=== PATIENT | female | born 1960 | race African-American/Black ===

== ENCOUNTER → 2016-11-25 | Outpatient (CLI) | payer OTHER ==
[~2016-11-25] MED LIST: ASPIRIN81 MG PO; ATARAX PO; CENTRUM SILVER1 EAC3 PO; DOK100 MG PO; FLEXERIL10 MG PO; GABAPENTIN300 M2 PO; LOPRESSOR PO; MIRALAX119 GM; OMEPRAZOLE20 M1 PO; OMEPRAZOLE20 M2 PO; PAROXETINE HCL20 M1 PO; PAXIL PO; QUETIAPINE FUM100 MG PO; SEROQUEL PO; TRAMADOL HCL50 M1 PO; TRAMADOL HCL50 M2 PO; VALACYCLOVIR1000 MG PO; ZANTAC PO; ZANTAC150 M1 PO; ZOVIRAX400 MG PO; [UNRECOGNIZED DRUG - OTHER]
== END | disposition home or self-care (01) ==
LOC: CECH 09:04
DX: R06.00 Dyspnea, unspecified (principal); K21.9 Gastro-esophageal reflux disease without esophagitis; F41.9 Anxiety disorder, unspecified; F32.9 Major depressive disorder, single episode, unspecified; I08.1 Rheumatic disorders of both mitral and tricuspid valves
CPT/HCPCS: 93306

== ENCOUNTER 2016-12-02 10:25 | Observation (INO) | payer OTHER ==
--- NOTE | ~2016-12-02 | DS ---
Unit #: [id number] #: [id number] Patient: TANYA CHRIS [id number] [address] [address] [id number] I MR#: [id number] NAME: TANYA CHRIS ROOM: 55 Age: 56 Sex: F Admission Date: 12/02/2016 : 1960 Discharge Date: 12/03/2016 Attending Physician: Zurdo Lowe M.D. Primary Care Physician: Markus Newman Aprn DISCHARGE SUMMARY DISCHARGE DIAGNOSES 1. Atypical chest pain. 2. Hypertension. 3. Obesity. 4. Gastroesophageal reflux disease. 5. Anxiety/depression. 6. Possible obstructive sleep apnea. 7. Reformed tobaccoism. PROCEDURES PERFORMED The patient underwent an exercise Cardiolite stress test which was normal per Dr. Lowe. Full report is pending. DIAGNOSTIC DATA LABORATORY: Most recent, TSH 1.81, cholesterol 192, triglycerides 144, LDL 98, HDL 65. White blood cell count 4.1, hemoglobin 10.5, hematocrit 33.7, platelets 220, sodium 141, potassium 4.4, chloride 106, CO2 28, BUN 14, creatinine 0.9. Troponin is less than 0.05. CARDIOVASCULAR: EKG unremarkable. HOSPITAL COURSE The patient is a 56-year-old female who does not have a prototyper. She denies ever having a myocardial infarction, stress test or cardiac catheterization. Her past medical history includes anxiety, gastroesophageal reflux disease, hypertension and anemia. The patient reports that she woke up with midsternal chest pain that lasted approximately 5 minutes and that she also had a similar episode the day prior. The patient presented to the emergency department and in the emergency department troponin was negative. EKG was abnormal. She was admitted for observation. The patient did undergo an exercise Cardiolite stress test which was normal per Dr. Lowe. Back on 11/25/2016 she did have a 2-D echocardiogram that showed an ejection fraction of 55%, mild MR, mild TR and RSVP 33 mmHg. I have discussed this case with Dr. Lowe and he is agreeable the patient is stable to discharge. DISCHARGE INSTRUCTIONS 1. The patient will be discharged home. 2. The patient is to follow up with primary care physician in one week. Unit #: [id number] #: [id number] Patient: TANYA CHRIS 3. Healthy heart diet. 4. Activity as tolerated. 5. The patient is to seek medical attention or return to the emergency room if signs or symptoms worsen. DISCHARGE MEDICATIONS 1. Paxil 40 mg p.o. daily. 2. Seroquel 100 mg p.o. daily. 3. Zovirax 400 mg p.o. b.i.d. 4. Lopressor 12.5 mg p.o. daily. 5. Aspirin 81 mg p.o. daily. 6. Tramadol 50 mg p.o. at night. 7. Omeprazole 20 mg p.o. daily. 8. Flexeril 10 mg p.o. b.i.d. p.r.n. pain. 1. Dictated by... Juanita Rosas A.P.R.N. for Melquiades Holland TD: 12/03/2016 13:40 JOB #: [id number] DISCHARGE SUMMARY Page 1 of 1 X Juanita Rosas APRN X DISCHARGE SUMMARY
--- NOTE | ~2016-12-02 | TH ---
Unit #: [id number] #: [id number] Patient: TANYA CHRIS [id number] [address] [address] [id number] I MR#: [id number] NAME: TANYA CHRIS : 1960 SEX: F STUDY DATE/TIME: 12/03/2016 UNIT: [id number] ROOM: 557 STUDY DESCRIPTION: Cardiolite imaging Attending Physician: Zurdo Lowe M.D. Primary Care Physician: Claudette Newman CARDIOLOGY REPORT EXAM Cardiolite imaging. INDICATION Chest pain, hypertension, shortness of breath, fatigue. SUMMARY The patient was given Lexiscan intravenously while at rest and stress, 10.68 and 29.9 mCi, with exercise stress testing done. The patient completed 5 minutes 31 seconds on the [place] protocol. Heart rate increased from 76 to 150 (91%) and blood pressure increased from 123/73 to 168/100. The rest and stress ECG showed no diagnostic ST shifts, no dysrhythmias and no heart block. Perfusion images demonstrate normal perfusion throughout the myocardium. There is intestinal artifact both at rest and stress. Planar images show no significant patient motion. Breast attenuation artifact is present. Normal right ventricular and left ventricular sizes and no increased lung uptake. Summed stress scores is zero, summed difference scores is zero. Gated perfusion wall motion analysis demonstrates end-diastolic volume 74 ml, ejection fraction 63%. IMPRESSION 1. Myocardial perfusion scan shows no ischemia or infarction. 2. Normal wall motion with excellent ejection fraction. 3. Normal stress ECG. 4. Severe deconditioning. 5. Normal heart rate and blood pressure responses. 6. The patient may be discharged. Dictated by... Zurdo Lowe M.D. PJR/gz TD: 12/03/2016 14:06 JOB #: [id number] Unit #: [id number] #: [id number] Patient: TANYA CHRIS CARDIOLOGY REPORT Page 1 of 1 X Zurdo Lowe MD CARDIOLOGY REPORT
--- NOTE | ~2016-12-02 | EKG ---
PATIENT: TANYA CHRIS UNIT #: [id number] Ventricular Rate: 91 BPM Atrial Rate: 91 BPM P-R Interval: 112 ms QRS Duration: 80 ms Q-T Interval: 376 ms QTC Calculation(Bezet): 462 ms Calculated R [place]: 147 degrees Calculated T [place]: -2 degrees Diagnosis Line: Normal sinus rhythm Diagnosis Line: Left posterior fascicular block Diagnosis Line: Non Diagnostic Q in Lead Inferior leads Abnormal Diagnosis Line: ECG Diagnosis Line: Diagnosis Line: Confirmed by SOPHIA ROMERO MD ([id number]) on 12/03/2016 Diagnosis Line: 9:19:01 AM INTERPRETING MD: HEATHER TORIBIO
--- NOTE | ~2016-12-02 | HP ---
Unit #: [id number] #: [id number] Patient: TANYA CHRIS [id number] [address] [address] [id number] I MR#: [id number] NAME: TANYA CHRIS ROOM: 55 Age: 56 Sex: F Admission Date: 12/02/2016 : 1960 Attending Physician: Zurdo Lowe M.D. HISTORY AND PHYSICAL REASON FOR ADMISSION Chest pain. 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 She denies ever having a history of myocardial infarction, stress test, or cardiac catheterization. Patient's past medical history includes anxiety, depression, anemia, and GERD. The patient reports that this morning she woke up with midsternal chest pain that lasted approximately five minutes. There were no associated symptoms at that time. Patient also reports that the day prior she had chest pain that was midsternal that lasted for five minutes with no other associated symptoms. This concerned the patient, and she presented to the emergency department. Patient reports that while she was in the waiting room she had chest pain that lasted for about five to seven minutes. It was midsternal and radiated to both of her arms and up into her jaw. She stated she felt some shortness of breath at that time. Denied any diaphoresis. In the emergency department, patient did receive aspirin chew. Her EKG is unremarkable, and her troponins are less than 0.05 x2. PAST MEDICAL HISTORY 1. Anxiety. 2. Gastroesophageal reflux disease. 3. Depression. 4. Anemia. PAST SURGICAL HISTORY 1. Hysterectomy. 2. . 3. Hemorrhoidectomy x2. ALLERGIES SULFA. HOME MEDICATIONS 1. Flexeril. 2. Quetiapine fumarate. 3. Park-Lax. 4. Acyclovir. 5. DOK. 6. Tramadol. Unit #: [id number] #: [id number] Patient: TANYA CHRIS 7. Paroxetine. 8. Hydroxyzine. 9. Multivitamin. 10. Omeprazole. Please note, the dosages are not known at this time. I have asked the nurses to obtain a complete medication reconciliation list. FAMILY HISTORY Patient reports that her sister has an enlarged heart and hypertension. SOCIAL HISTORY Patient reports that she is , and her last year. She is an ex-smoker and quit smoking last year. She rarely drinks alcohol and denies any illicit drug abuse. REVIEW OF SYSTEMS A 10-point review of systems has been done and is considered otherwise negative unless indicated in the History of Present Illness. PHYSICAL EXAMINATION GENERAL: Patient is awake, alert, and in no acute distress. VITAL SIGNS: Temperature 97.9, heart rate 91, respirations 26, and blood pressure 130/76. HEENT: Head is atraumatic and normocephalic. Pupils are equal, round, and reactive. Extraocular movements are intact. No drainage from ears or nares. NECK: Supple. Trachea is midline. Normal carotid upstrokes. CHEST: Lungs are clear to auscultation bilaterally. No wheezes, rales, or rhonchi. CARDIOVASCULAR: S1 and S2, regular rate and rhythm. No murmurs, rubs, or gallops are appreciated. ABDOMEN: Soft, nontender, and nondistended. Bowel sounds are positive in all four quadrants. SKIN: Appears to be warm, dry, and intact, without any unusual rashes or lesions. EXTREMITIES: No clubbing, edema, or cyanosis. NEUROLOGIC: Cranial nerves II-XII appear to be intact. No focal deficits. She is alert and oriented x3, pleasant and conversant. DIAGNOSTIC STUDIES LABORATORY: White blood cells 4.2, hemoglobin 10.9, hematocrit 35.3, and platelets 235,000. Sodium 137, potassium 3.8, chloride 103, CO2 of 26, BUN 12, creatinine 0.6, and glucose 96. Point of care troponins in the ER are less than 0.05 x2. CARDIOLOGY: EKG shows normal sinus rhythm. ASSESSMENT 1. Chest pain. 2. Hypertension. 3. Obesity. 4. Anxiety and depression. 5. Gastroesophageal reflux disease. 6. Reformed tobaccoism. 7. Possible obstructive sleep apnea. PLAN Unit #: [id number] #: [id number] Patient: TANYA CHRIS At this time, will admit the patient for observation and plan to do an exercise Cardiolite stress test in the morning. Will obtain serial enzymes and check a 2D echocardiogram. Will start the patient on Protonix 40 mg IV daily, nitroglycerin paste one-half inch p.o. q.8 hours, metoprolol 12.5 mg p.o. daily, hold for heart rate less than 60, and aspirin 81 mg p.o. daily. Will also check a BMP, magnesium, CBC, TSH, and lipid panel in the a.m. May need to consider an MART inhibitor or statin after further testing has been done. Dictated by Juanita Rosas A.P.R.N. for Zurdo Lowe M.D. AM/ester TD: 12/02/2016 20:48 JOB #: [id number] HISTORY AND PHYSICAL Page 1 of 1 X Juanita Rosas [employer] DIRECTOR X HISTORY AND PHYSICAL
--- NOTE | ~2016-12-02 | CR72 ---
[facility] A Service of [facility] & [facility] RADIOLOGY TEXT RESULTS PATIENT: TANYA CHRIS LOCATION: [facility] [id number] : [birth year] UNIT #: [id number] AGE: [address]: Zurdo Lowe MD SEX: F ORDER DR: [id number] [facility] [address] [facility] [place], [place] [address] [id number] MR#: [id number] Acc #: [id number] NAME: TANYA CHRIS : 1960 SEX: F STUDY DATE/TIME: 12/02/2016 10:29 UNIT: [facility] ROOM: STUDY DESCRIPTION: CR Chest Single View Portable Attending Physician: Alfredo Varma M.D. Ordering Physician: Alfredo Varma M.D. Primary Care Physician: Claudette Newman MEDICAL IMAGING REPORT This report is preliminary unless electronic signature is present EXAM Chest x-ray 12/02/2016 INDICATION Chest pain today. FINDINGS AP portable chest is compared with 07/10/2015. Heart is enlarged. Lungs are clear. Vascularity is normal. There is no pneumothorax. IMPRESSION Cardiomegaly. No active disease. Dictated by... Wiliam Stringer Jr., M.D. THIS IS AN ELECTRONICALLY VERIFIED REPORT Wiliam Stringer Jr., M.D. at 12/02/2016 3:46 PM MIRTHA/priyanka TD: 12/02/2016 15:21 JOB #: [id number] MEDICAL IMAGING REPORT Page 1 of 1 COPY
--- NOTE | ~2016-12-02 | EKG ---
PATIENT: TANYA CHRIS UNIT #: [id number] Ventricular Rate: 72 BPM Atrial Rate: 72 BPM P-R Interval: 134 ms QRS Duration: 76 ms Q-T Interval: 428 ms QTC Calculation(Bezet): 468 ms P [place]: 42 degrees Calculated R [place]: 70 degrees Calculated T [place]: 42 degrees Diagnosis Line: Normal sinus rhythm Diagnosis Line: Normal ECG Diagnosis Line: When compared with ECG of 02-DEC-2016 09:46, Diagnosis Line: (unconfirmed) Diagnosis Line: Borderline criteria for Inferior infarct are no Diagnosis Line: longer Present Diagnosis Line: Nonspecific T wave abnormality no longer evident Diagnosis Line: in Inferior leads Diagnosis Line: Confirmed by SOPHIA ROMERO MD ([id number]) on 12/04/2016 Diagnosis Line: 9:34:58 AM INTERPRETING MD: HEATHER TORIBIO
[~2016-12-02 10:25] MED LIST changes: -ASPIRIN81 MG PO; -LOPRESSOR PO; -OMEPRAZOLE20 M2 PO; -PAXIL PO; -SEROQUEL PO; -TRAMADOL HCL50 M1 PO; -ZOVIRAX400 MG PO
[2016-12-02 11:32] LABS: BASOPHIL% 0.5 % (0-2.5); DIFF IND NO; EOSINOPHIL# 0.1 X10e3 (0-0.7); EOSINOPHIL% 1.6 % (0.0-7.0); HEMATOCRIT 35.3 % (35.0-45.0); HEMOGLOBIN 10.9 gm/dL (12.0-16.0); LYMPHOCYTE# 1.6 X10e3 (1.0-3.5); LYMPHOCYTE% 38.1 % (17.0-45.0); MEAN CELL VOLUME 73.2 FL (83-96); MEAN CORPUSCULAR HEMOGLOBIN 22.7 PG (28-34); MEAN PLATELET VOLUME 8.1 FL (6.5-11.5); MONOCYTE# 0.4 X10e3 (0-1.0); MONOCYTE% 10.2 % (3.0-12.0); NEUTROPHIL# 2.1 X10e3 (1.5-7.1); NEUTROPHIL% 49.6 % (40-75); PLATELET COUNT 235 X10e3 (140-420); RED BLOOD COUNT 4.82 X10e (3.90-5.30); RED CELL DISTRIBUTION WIDTH 15.9 % (11.0-15.5); WHITE BLOOD COUNT 4.2 X10e3 (4.0-10.5)
[2016-12-02 11:33] LABS: POC - CKMB <1.0 ng/mL (0.0-7.9); POC - TROPONIN <0.05 ng/mL (<=0.05)
[2016-12-02 11:59] LABS: ALBUMIN SERUM 3.8 g/dL (3.5-5.0); ALKALINE PHOSPHATASE 77 U/L (32-92); ALT (SGPT) 22 U/L (10-40); AST (SGOT) 21 U/L (10-42); BILIRUBIN, DIRECT 0.1 mg/dL (0.0-0.2); BILIRUBIN,INDIRECT 0.6 mg/dL (0.0-0.9); BILIRUBIN,TOTAL 0.7 mg/dL (0.2-2.0); BLOOD UREA NITROGEN 12 mg/dL (9-23); CALCIUM SERUM 8.8 mg/dL (8.4-10.2); CARBON DIOXIDE 26 mmol/L (22-31); CHLORIDE 103 mmol/L (100-111); CREATININE SERUM 0.6 mg/dL (0.6-1.4); GLOM FILT RATE Estimated ABOVE60 mL/min (>60); GLUCOSE FASTING 96 mg/dL (70-110); POTASSIUM 3.8 mmol/L (3.5-5.1); PROTEIN TOTAL SERUM 7.3 g/dL (6.0-8.3); SODIUM 137 mmol/L (135-145)
[2016-12-02 12:05] LABS: PARTIAL THROMBOPLASTIN TIME 27.6 SECONDS (23.5-31.3); PROTHROMBIN TIME (PATIENT) 10.7 SECONDS (9.6-11.5)
[2016-12-02 12:59] LABS: POC - CKMB <1.0 ng/mL (0.0-7.9); POC - TROPONIN <0.05 ng/mL (<=0.05)
[2016-12-02] MEDS ORDERED: TRAMADOL HCL50 M1 PO (16:12)
[2016-12-02] MEDS ORDERED: ZOVIRAX400 MG PO (16:13)
[2016-12-02] MEDS ORDERED: OMEPRAZOLE20 M2 PO (16:13)
[2016-12-02] MEDS ORDERED: SEROQUEL PO (16:13)
[2016-12-02] MEDS ORDERED: PAXIL PO (16:14)
[2016-12-02] MEDS ORDERED: FLEXERIL10 MG PO (16:14)
[2016-12-02 19:17] LABS: %MB 0.9 % (0.0-4.0); MB 1.1 ng/ml
[2016-12-03 06:54] LABS: HEMATOCRIT 33.7 % (35.0-45.0); HEMOGLOBIN 10.5 gm/dL (12.0-16.0); MEAN CELL VOLUME 73.2 FL (83-96); MEAN CORPUSCULAR HEMOGLOBIN 22.8 PG (28-34); MEAN CORPUSCULAR HGB CONC 31.1 g/dL (30-36); MEAN PLATELET VOLUME 7.9 FL (6.5-11.5); RED BLOOD COUNT 4.61 X10e (3.90-5.30); RED CELL DISTRIBUTION WIDTH 16.5 % (11.0-15.5); WHITE BLOOD COUNT 4.1 X10e3 (4.0-10.5)
[2016-12-03 07:33] LABS: BLOOD UREA NITROGEN 14 mg/dL (9-23); CALCIUM SERUM 9.3 mg/dL (8.4-10.2); CARBON DIOXIDE 28 mmol/L (22-31); CHLORIDE 106 mmol/L (100-111); CHOLESTEROL 192 mg/dL (0-200); CREATININE SERUM 0.7 mg/dL (0.6-1.4); GLOM FILT RATE Estimated ABOVE60 mL/min (>60); GLUCOSE FASTING 99 mg/dL (70-110); HDL CHOLESTEROL 65 mg/dL (35-95); LDL CHOLESTEROL 98 mg/dL (-130); LDL/HDL RATIO 2 RATIO (0-4); MAGNESIUM 1.8 mg/dL (1.6-3.0); POTASSIUM 4.4 mmol/L (3.5-5.1); SODIUM 141 mmol/L (135-145); TRIGLYCERIDES 144 mg/dL (10-160)
[2016-12-03] MEDS ORDERED: ASPIRIN81 MG PO (13:46)
[2016-12-03] MEDS ORDERED: LOPRESSOR PO (13:46)
== END 2016-12-03 14:34 | disposition home or self-care (01) ==
LOC: CED 10:25 → CEDOF 15:02 → C5B 19:50
PROVIDERS: Emergency Medicine
DX: R07.89 Other chest pain (principal); I51.7 Cardiomegaly; I10 Essential (primary) hypertension; E66.9 Obesity, unspecified; Z68.33 Body mass index [BMI] 33.0-33.9, adult; K21.9 Gastro-esophageal reflux disease without esophagitis; F41.9 Anxiety disorder, unspecified; F32.9 Major depressive disorder, single episode, unspecified; Z87.891 Personal history of nicotine dependence; I08.1 Rheumatic disorders of both mitral and tricuspid valves; Z79.899 Other long term (current) drug therapy; Z82.49 Family history of ischemic heart disease and other diseases of the circulatory system; Z98.890 Other specified postprocedural states; Z90.710 Acquired absence of both cervix and uterus; Z88.2 Allergy status to sulfonamides
CPT/HCPCS: 36415; 71010; 78452; 80048; 80061; 80076; 82550; 82553; 83735; 84443; 84484; 85025; 85027; 85379; 85610; 85730; 93005; 93017; 94762; 96372; 99285; A9500; G0378; J1650

== ENCOUNTER → 2016-12-17 | Outpatient (CLI) | payer OTHER ==
[~2016-12-17] MED LIST changes: +ASPIRIN81 MG PO; +LOPRESSOR PO; +OMEPRAZOLE20 M2 PO; +PAXIL PO; +SEROQUEL PO; +TRAMADOL HCL50 M1 PO; +ZOVIRAX400 MG PO
== END | disposition home or self-care (01) ==
LOC: CRAD 09:46
DX: R13.10 Dysphagia, unspecified (principal)
CPT/HCPCS: 74230; 92611

== ENCOUNTER → 2017-01-05 | Outpatient (CLI) | payer OTHER ==
--- NOTE | ~2017-01-05 | CR65 ---
[facility] A Service of [facility] & [facility] RADIOLOGY TEXT RESULTS PATIENT: TANYA CHRIS LOCATION: [facility] : 60 UNIT #: [id number] AGE: [address]: Shannan Ambrosio SEX: F ORDER DR: [id number] [facility] [address] [place], [place] [address] [id number] O MR#: [id number] Acc #: [id number] NAME: TANYA CHRIS : 1960 SEX: F STUDY DATE/TIME: 01/05/2017 13:46 UNIT: [facility] ROOM: STUDY DESCRIPTION: CR Chest 2 View W Fluoro Attending Physician: Shannan Ambrosio A.P.R.N. Referring Physician: Shannan Ambrosio A.P.R.N. Ordering Physician: Shannan Ambrosio A.P.R.N. Primary Care Physician: Claudette Newman MEDICAL IMAGING REPORT This report is preliminary unless electronic signature is present EXAM Chest fluoroscopy. HISTORY Dyspnea with sensation of food sticking over the past year, but worse over the past 2-3 months. TECHNIQUE Fluoroscopy of the diaphragms was performed with the patient upright. Deep inspiration and expiration was visualized as well as sniffing. Both diaphragms move normally without evidence of diaphragmatic paralysis. IMPRESSION Normal chest fluoroscopy. No evidence of diaphragm paralysis. Dictated by... Wiliam Campuzano M.D. THIS IS AN ELECTRONICALLY VERIFIED REPORT Wiliam Campuzano M.D. at 01/06/2017 7:34 AM NORA/alanna TD: 01/05/2017 17:42 JOB #: [id number] MEDICAL IMAGING REPORT Page 1 of 1 COPY
== END | disposition home or self-care (01) ==
LOC: CRAD 12:58
DX: R06.00 Dyspnea, unspecified (principal); K21.9 Gastro-esophageal reflux disease without esophagitis
CPT/HCPCS: 71023

== ENCOUNTER → 2017-05-27 | Outpatient (CLI) | payer OTHER ==
--- NOTE | ~2017-05-27 | MR17 ---
[facility] A Service of [facility] RADIOLOGY TEXT RESULTS PATIENT: TANYA CHRIS LOCATION: [facility] : 60 UNIT #: [id number] AGE: [address]: Goran Garrison II, MD SEX: F ORDER DR: [id number] [id number] [place], [place] [address] [id number] O MR#: [id number] Acc #: [id number] NAME: TANYA CHRIS : 1960 SEX: F STUDY DATE/TIME: 05/27/2017 16:07 UNIT: [facility] ROOM: STUDY DESCRIPTION: MR Brain WWo Contrast Attending Physician: Goran Garrison II., M.D. Referring Physician: Goran Garrison II., M.D. Ordering Physician: Goran Garrison II., M.D. Primary Care Physician: Claudette Newman [facility] REPORT This report is preliminary unless electronic signature is present. EXAM Brain MRI with and without contrast. DATE OF STUDY 05/27/2017 CLINICAL HISTORY One year history of headache and difficulty swallowing. FINDINGS There is no MR-evidence of acute ischemia or other restricted diffusion. There is no hemorrhage or hydrocephalus or extraaxial fluid collection. Brain parenchymal signal is normal. Normal flow voids are seen in the cerebral vessels. The extracranial structures are normal and bone marrow signal is normal. Postcontrast images show no evidence of mass or abnormal enhancement. IMPRESSION Normal brain MRI with and without contrast. Dictated by... Luis M Hooper M.D. THIS IS AN ELECTRONICALLY VERIFIED REPORT Luis M Hooper M.D. at 06/04/2017 7:33 AM KESHA/alanna TD: 05/28/2017 22:43 [facility] A Service of [facility] RADIOLOGY TEXT RESULTS PATIENT: TANYA CHRIS LOCATION: [facility] : 60 UNIT #: [id number] AGE: [address]: Goran Garrison II, MD SEX: F ORDER DR: JOB #: [id number] [facility] REPORT Page 1 of 1 COPY
[2017-05-27 16:15] LABS: POC - CREATININE 0.79 mg/dL (0.44-1.03); POC - GFR >60.0 mL/min (>60)
== END | disposition home or self-care (01) ==
LOC: CMRI 15:33
PROVIDERS: Psychiatry & Neurology Neurology
DX: R13.10 Dysphagia, unspecified (principal)
CPT/HCPCS: 70553; 82565; A9577